=== PATIENT | female | born 1950 | race Caucasian/White ===

== ENCOUNTER 2017-12-27 08:06 | Outpatient (CLI) | payer MEDICARE ==
--- NOTE | 2017-12-27 10:38 | CT ---
LOW DOSE CT SCAN OF CHEST FOR LUNG CANCER SCREENING: Date: 12/27/17 HISTORY: [id number] female with 44 year history of smoking 1-2 packs per day. FINDINGS: No pulmonary nodules are seen. No pleural or pericardial effusions are identified. No pneumothoraces or focal areas of consolidation are seen. There is no evidence of aneurysmal dilatation of the thorac ic aorta. There are degenerative changes in the spine. IMPRESSION: Lung-RADS category 1: Negative, no evidence of primary lung cancer. RECOMMENDATION: Continue routine annual LDCT lung screening in 12 months. POS: VIBHA
== END 2017-12-27 08:07 | disposition home or self-care (01) ==
LOC: CT 08:06
PROVIDERS: ATTEND Internal Medicine
DX: Z12.2 Encounter for screening for malignant neoplasm of respiratory organs (principal); F17.210 Nicotine dependence, cigarettes, uncomplicated
CPT/HCPCS: G0297

== ENCOUNTER 2018-07-04 09:55 | Outpatient (CLI) | payer MEDICARE ==
--- NOTE | 2018-07-04 10:59 | MMO ---
Bilateral MAMMO Bilat Screen [facility]. CLINICAL HISTORY: Patient is 67 years old and is seen for screening. The patient has the following family history of breast cancer: maternal grandmother; paternal grandmother and mother. The patient has no personal history of cancer. VIEWS: The views performed were: bilateral craniocaudal with tomosynthesis; bilateral mediolateral oblique with tomosynthesis; and right exaggerated craniocaudal. FILMS COMPARED: The present examination has been compared to a prior imaging study performed at [facility] on 04/06/2017. MAMMOGRAM FINDINGS: There are scattered fibroglandular densities. There are no suspicious masses, suspicious calcifications, or new areas of architectural distortion. IMPRESSION: THERE IS NO MAMMOGRAPHIC EVIDENCE OF MALIGNANCY. A ROUTINE FOLLOW-UP MAMMOGRAM IN 1 YEAR IS RECOMMENDED. THE RESULTS OF THIS EXAM WERE SENT TO THE PATIENT. ACR BI-RADS Category 1 - Negative MAMMOGRAPHY NOTE: 1. A negative mammogram report should not delay a biopsy if a dominant of clinically suspicious mass is present. 2. Approximately 10% to 15% of breast cancers are not detected by mammography. 3. Adenosis and dense breasts may obscure an underlying neoplasm.
== END 2018-07-04 09:56 | disposition home or self-care (01) ==
LOC: BICMAMMO 09:55
PROVIDERS: ATTEND Internal Medicine
DX: Z12.31 Encounter for screening mammogram for malignant neoplasm of breast (principal); Z80.3 Family history of malignant neoplasm of breast
CPT/HCPCS: 77063; 77067